=== PATIENT | female | born 2000 | race Two or more races ===

== ENCOUNTER 2024-06-20 20:01 | Inpatient (IN) | payer SELFPAY ==
[2024-06-20 20:45] VITALS: BMI 21.7
[2024-06-20] MEDS: OLANZapine 5 MG TABLET PO (23:36)
[2024-06-20] MEDS: hydrOXYzine HCL 25 MG TABLET PO (23:36)
[2024-06-20] MEDS: traZODone HCL 50 MG TABLET PO (23:37)
--- NOTE | 2024-06-21 01:28 | PC.ADMIT ---
Pt is a 24yo female [place] [facility] [place]erratic [place]. Pt reported acting erratic, yelling I am good , after coming home from work as well as not sleeping. She has been decompensating over the past few days. Danuta resides with friends who are hosting her as she attends school in [place]. She does not have any providers here in [place] and does not have any HX of inpatient psychiatric admissions or any other level of care. Danuta has risk factors that include disorganization, onset of symptoms, lack of outpatient providers as well as sleep disturbances. On unit admission process, Pt was calm and cooperative, denies SI/HI/AV/VH. She however appears disorganized, laughing to self. She appear to be responding to internal stimuli. Pt continues to be disorganized, wondering to other Pt's rooms, and taking their cloths. She was redirected, PO PRNs offered and administered with calm effect as she slept off later. Safety/skin check was unremarkable, v/s and wt done. She signed some release of information forms, menu, and valuable form. Treatment plan and safety tools done but yet to be signed. Hospitalist contacted for consultation. Pt is safe on the unit.
[2024-06-21 07:50] VITALS: BP 126/61; PULSE 113; TEMP 36.8; O2SAT 99
[2024-06-21 08:53] LABS: Estimated Average Glucose 114 mg/dL; Hemoglobin A1C 107.8853 umol/L; Hemoglobin A1c % 5.6 % (<6.0); Total Hemoglobin (HGBA1C) 2871.3264 umol/L
[2024-06-21 09:12] LABS: Alanine Aminotransferase 16 U/L (0-31); Albumin Level 4.5 g/dL (3.5-5.0); Alkaline Phosphatase 55 U/L (39-117); Anion Gap 11 (12-20); Aspartate Amino Transferase 35 U/L (5-31); Bilirubin Total 0.3 mg/dL (0.0-1.0); Blood Urea Nitrogen 12 mg/dL (9-16); Calcium 9.2 mg/dL (8.4-10.2); Carbon Dioxide 24 mmol/L (22-29); Chloride 112 mmol/L (96-108); Cholesterol 123 mg/dL (<200); Creatinine Clr Calc Pharmacy 83.1; Estimated Glomerular Filt Rate > 60; Glucose Random 94 mg/dL (60-115); HDL Cholesterol 66 mg/dL (>40); LDL Cholesterol Calculated 48 mg/dL (<100); Potassium 3.9 mmol/L (3.3-5.1); Sodium 143 mmol/L (135-145); Total Protein 7.2 g/dL (6.5-8.0); Triglycerides 45 mg/dL (<150)
[2024-06-21 09:27] LABS: TSH reflex Free T4 0.82 uIU/mL (0.32-4.0)
--- NOTE | 2024-06-21 09:39 | HO.PSYADMNOT ---
HPI Date of Service: 06/21/24 Chief Complaint: F20.9 Unspecified Schizophrenia Spectruim and Psyc Sources of Information: patient interviewed, chart reviewed and crisis/core team assessment reviewed HPI Subjective Notes: Yepez Warning Narrative: 24 yo female, transfer fro [facility] with erratic behaviors in community, not being able to sleep and considered to be decompensating over the last several days. Mood is described as labile. She is described as disorganized and is intrusive on the unit. Pt is an [employer] student, staying with friends. She lives in [place] [place] [facility] and came to the area in Feb 2024. Past Psychiatric History: IP: Denies OP: Denies Medical Evaluation Reviewed: Yes [facility] Narrative: anemia Family History: Denies Social History: Born in [facility] [place] Currently at [employer] working on her masters degree Substance History: Denies Trauma History: Denies Diagnostics Vital Signs (24Hr): Vital Signs - 24 hr 06/21/24 07:50 Temperature 98.3 F Pulse Rate 113 H Blood Pressure 126/61 Pulse Oximetry 99 Oxygen Delivery Method Room Air BMI result Body Mass Index 21.7 Labs 06/21/24 08:31 Labs: Laboratory Results - last 48 hr 06/21/24 08:31 Sodium 143 Potassium 3.9 Chloride 112 H Carbon Dioxide 24 Anion Gap 11 L BUN 12 Creatinine 0.93 Estim Creat Clear Calc 83.1 Estimated GFR > 60 Random Glucose 94 Estimat Average Glucose 114 Hemoglobin A1c % 5.6 Calcium 9.2 Total Bilirubin 0.3 AST 35 H ALT 16 Alkaline Phosphatase 55 Total Protein 7.2 Albumin 4.5 Triglycerides 45 Cholesterol 123 LDL Cholesterol, Calc 48 HDL Cholesterol 66 TSH 0.82 Meds/Allergies Meds Home Medications ?Medication ?Instructions ?Recorded ?Confirmed ?Type No Known Home Meds 06/20/24 06/20/24 History Allergies Allergies Allergy/AdvReac Type Severity Reaction Status Date / Time No Known Allergies Allergy Verified 06/20/24 20:44 Mental Status Exam Mental Status Exam Patient Appearance: Appropriate Patient Orientation: Person, Place, Time and Situation Level of Consciousness: Alert Patient Behavior: Talkative, Cooperative and Good Eye Contact Mood Description: Withdrawn and Labile Affect Description: Withdrawn and Labile Patient Cognition Impaired: No Ability to Follow Directions: Fair Speech Pattern: Spontaneous Speech Memory Description: Episodic Impaired Hallucinations: None Delusions: Not Present Thought Content: positive for [place], positive for Circumstantial and positive for Suicidal Ideation (denies) Judgement: Fair Assessment & Plan Assessment & Plan (1) Mood disorder: Status: Acute Code(s): F39 - Unspecified mood [affective] disorder Plan Admit Observe sx/behaviors. Zyprexa prn Collateral contact Diagnostics as needed Pt is not interested in medicine at this time. ?Initial manic episode Patient educated on: therapeutic strategies Reason for continued inpatient stay Substantial Risk for: rapid decompensation Statement Statement: I have reviewed the history and physical and performed a pertinent examination on my patient. No changes have occurred unless specified. If the History and Physical was not performed prior to admission, the Hospitalist's service will be consulted for completing the admission physical. Time Spent With Patient Time: Total time managing care of this patient today ____ minutes.
--- NOTE | 2024-06-21 11:40 | P.CONHOSP_ITS ---
History of Present Illness Data of Consult Service Date: 06/21/24 Primary Care Provider: Unknown Physician HPI Reason for consult: Admission H&P Pt is a 24-year-old female without any known PMH who is admitted to psychiatry unit for bizarre behavior. Pt presented to [facility] [place] ED with her father who reported she had been acting abnormally for the past few days, acting hyper, manic, and not sleeping. Workup at [facility] [place] remarkable for anemia of 9.8/31.7, otherwise unremarkable, including negative CT of head. Medical consult for admission H&P. Pt seen and evaluated on the unit where she continues to be manic and overall somewhat difficult to redirect. Pt denies any previous medical hx and is not on home prescription medications. Is unsure when last she saw a primary care physician for a regular yearly physical. Pt denies any acute medical complaints. No fever, chills, nausea, vomiting, abdominal pain. Denies shortness or breath or difficulty breathing. No chest pain/pressure, palpitations. Denies headache acute vision changes. Labs reviewed, chemistries grossly unremarkable. No significant electrolyte abnormalities. Renal function WNL. Hepatic function with mildly elevated AST of 35, otherwise WNL. Lipid profile WNL. Pt mildly tachycardic at 113, vitals otherwise stable and WNL. Review of Systems 2 Review of Systems: Pt has no acute medical complaints at this time. [facility] Social History Household Members: Family Housing: Apartment Do you presently have visiting nurse or other home services: No Patient Tobacco Use Status: Never used Tobacco Smoked in Last 30 Days: No Patient Interested in Nicotine Replacement: No Patient Given Instructions on How to Stop Smoking: No Second Hand Smoke Exposure: No Use of substances other than those prescribed or required for medical reasons: No Currently Displaying Signs/Symptoms of Drug Intoxication Withdrawal: No Any prior treatment program specific to substance use: No Have you been hit, kicked, punched, or otherwise hurt by someone within the past year? If so, by whom?: No Do you feel safe in your current relationship?: No Current Relationship Is there a partner from a previous relationship who is making you feel unsafe now?: No Are you made to feel afraid or neglected: No Advance Directives: No Advance Directives Information Provided: No Do you have a plan to hurt others: No Plan Recently lost weight without trying: Yes How much weight loss: 2-13 pounds Eating poorly because of decreased appetite: Yes Nutrition screen score: 4 Nutrition Risks: No Nutritional Risk Patient : No : No Poor oral hygiene: No Meds Allergies Allergy/AdvReac Type Severity Reaction Status Date / Time No Known Allergies Allergy Verified 06/20/24 20:44 Active Medications: Current Medications Acetaminophen (Acetaminophen 325 Mg Tablet) 650 mg PO Q6H PRN PRN Reason: Headache/Pain, Scale 1-10 Al Hydroxide/Mg Hydroxide (Magnesium Hydrox/Alum Hydrox 30 Ml Oral.Susp) 30 ml PO Q6H PRN PRN Reason: Heartburn/Nausea Hydroxyzine HCl (Hydroxyzine Hcl 25 Mg Tablet) 25 mg PO Q6H PRN PRN Reason: mild anxiety Last Admin: 06/20/24 23:36 Dose: 25 mg Magnesium Hydroxide (Milk Of Magnesia 30 Ml Oral.Susp) 30 ml PO DAILY PRN PRN Reason: Constipation Nicotine (Nicotine 21 Mg Patch.Td24) 21 mg TRANSDERMA DAILY PRN PRN Reason: smoking cessation Olanzapine (Olanzapine 5 Mg Tablet) 5 mg PO TID PRN PRN Reason: agitation Last Admin: 06/20/24 23:36 Dose: 5 mg Trazodone HCl (Trazodone Hcl 50 Mg Tablet) 50 mg PO BEDTIME MRX1 PRN PRN Reason: Insomnia Last Admin: 06/20/24 23:37 Dose: 50 mg Home Medications ?Medication ?Instructions ?Recorded ?Confirmed ?Last Taken ?Type No Known Home Meds 06/20/24 06/20/24 Unknown History Physical Exam 2 Vital Signs and Narrative: Vital Signs: Last Vital Signs Temp 98.3 F 06/21/24 07:50 Pulse 113 H 06/21/24 07:50 BP 126/61 06/21/24 07:50 Pulse Ox 99 06/21/24 07:50 O2 Del Method Room Air 06/21/24 07:50 BMI result Body Mass Index 21.7 General: AOx3, no acute distress Resp: CTA bilaterally CVS: S1, S2, RRR GI: +BS, NT, no distention Skin: Warm, dry Neuro: Cranial nerves II-XII grossly intact bilaterally. Motor grossly intact bilaterally Extremities: No edema Psych: Appear manic, somewhat difficult to redirect Results Labs 06/21/24 08:31 Labs: Laboratory Results - last 24 hr 06/21/24 08:31 Anion Gap 11 L Estim Creat Clear Calc 83.1 Estimated GFR > 60 Random Glucose 94 Estimat Average Glucose 114 Hemoglobin A1c % 5.6 Calcium 9.2 Total Bilirubin 0.3 AST 35 H ALT 16 Alkaline Phosphatase 55 Total Protein 7.2 Albumin 4.5 Triglycerides 45 Cholesterol 123 LDL Cholesterol, Calc 48 HDL Cholesterol 66 TSH 0.82 Assessment and Plan (1) Medical clearance for psychiatric admission: Status: Acute Plan Pt is a 24-year-old female without any known PMH who is admitted to psychiatry unit for bizarre behavior. Pt presented to [facility] [place] ED with her father who reported she had been acting abnormally for the past few days, acting hyper, manic, and not sleeping. Workup at [facility] [place] remarkable for anemia of 9.8/31.7, otherwise unremarkable, including negative CT of head. Medical consult for admission H&P. Mood disorder Plan as per Psychiatry Anemia [facility] [place] labs showed H&H of 9.8/31.7, none others for comparison Pt denies active bleeding, is asymptomatic Needs outpatient follow up Pt otherwise has no acute medical complaints known chronic medical conditions. Will sign off for now. Thank you for allowing us to participate in the care of this pt. Please re-consult if any acute issue or need arises.
[2024-06-21 20:00] VITALS: BP 121/71; PULSE 85; RESP 16; TEMP 36.7; O2SAT 100
[2024-06-21] MEDS: hydrOXYzine HCL 25 MG TABLET PO (20:13)
[2024-06-21] MEDS: traZODone HCL 50 MG TABLET PO (20:14)
[2024-06-21] MEDS: OLANZapine 5 MG TABLET PO (20:14)
[2024-06-22 08:10] VITALS: BP 122/69; PULSE 84; TEMP 36.3; O2SAT 95
--- NOTE | 2024-06-22 08:43 | HO.PSYCHPN ---
Subjective Subjective Date of Service: 06/22/24 Reason For Visit: F20.9 Unspecified Schizophrenia Spectruim and Psyc Interim History: met with patient in her room. Bright, intense, odd affect. Poor insight. Vague disease control inspector. Says she feels good and does not need to be here. Mood is so happy . She says she is here because they thought I was crazy but that was a mistake . She says her family has come for her and they say they want me home . She apparently lives with family in the area. She lists names of people she lives with (Lydia, Duane, Cony, Lenora, Arturo, Wanda, Senthili (?sp)) but I am unable to clarify who these individuals are and how she is related to each of them. She mentions her father is in [place] and wanted her here, but now wants her to come home. In another instance she says the opposite my dad was saying stay, but I should go . 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 She is a student at [employer] and is studying business but keeps mentioning trying to find some kids to teach. She had difficulty focusing on conversation, and thereafter throughout the day she would interrupt this residential mortgage underwriter when I was speaking to other patients in the milieu and would oddly glare and intrude on others' personal conversation and occasionally needed to be asked to leave to afford privacy to other patients. She did not appears to respond poorly to being redirected, but was also unclear what her intention was with the intrusion. She denied any SI/HI/AH/VH but does appear internally preoccupied, but does not appear to b grossly responding to unseen stimuli. Medication Compliance: Yes Side effects from medications: No Attending Groups: Yes Review of Systems Acute medical concerns: No Review of Systems Review of Systems anemia Mental Status Exam Mental Status Exam Patient Appearance: Appropriate Patient Orientation: Person, Place, Time and Situation Level of Consciousness: Alert Patient Behavior: Talkative, Cooperative and Good Eye Contact Mood Description: Withdrawn and Labile Affect Description: Withdrawn and Labile Patient Cognition Impaired: No Ability to Follow Directions: Fair Speech Pattern: Spontaneous Speech Memory Description: Episodic Impaired Diagnostics Vital Signs (24Hr): Vital Signs - 24 hr 06/21/24 20:00 06/22/24 08:10 Temperature 98.1 F 97.4 F Pulse Rate 85 84 Respiratory Rate 16 Blood Pressure 121/71 122/69 Pulse Oximetry 100 95 Oxygen Delivery Method Room Air Room Air BMI result Body Mass Index 21.7 Labs 06/21/24 08:31 Labs: Laboratory Results - last 48 hr 06/21/24 08:31 Sodium 143 Potassium 3.9 Chloride 112 H Carbon Dioxide 24 Anion Gap 11 L BUN 12 Creatinine 0.93 Estim Creat Clear Calc 83.1 Estimated GFR > 60 Random Glucose 94 Estimat Average Glucose 114 Hemoglobin A1c % 5.6 Calcium 9.2 Total Bilirubin 0.3 AST 35 H ALT 16 Alkaline Phosphatase 55 Total Protein 7.2 Albumin 4.5 Triglycerides 45 Cholesterol 123 LDL Cholesterol, Calc 48 HDL Cholesterol 66 TSH 0.82 Medications Medications Current Medications Acetaminophen (Acetaminophen 325 Mg Tablet) 650 mg PO Q6H PRN PRN Reason: Headache/Pain, Scale 1-10 Al Hydroxide/Mg Hydroxide (Magnesium Hydrox/Alum Hydrox 30 Ml Oral.Susp) 30 ml PO Q6H PRN PRN Reason: Heartburn/Nausea Hydroxyzine HCl (Hydroxyzine Hcl 25 Mg Tablet) 25 mg PO Q6H PRN PRN Reason: mild anxiety Last Admin: 06/21/24 20:13 Dose: 25 mg Magnesium Hydroxide (Milk Of Magnesia 30 Ml Oral.Susp) 30 ml PO DAILY PRN PRN Reason: Constipation Nicotine (Nicotine 21 Mg Patch.Td24) 21 mg TRANSDERMA DAILY PRN PRN Reason: smoking cessation Olanzapine (Olanzapine 5 Mg Tablet) 5 mg PO TID PRN PRN Reason: agitation Last Admin: 06/21/24 20:14 Dose: 5 mg Trazodone HCl (Trazodone Hcl 50 Mg Tablet) 50 mg PO BEDTIME MRX1 PRN PRN Reason: Insomnia Last Admin: 06/21/24 20:14 Dose: 50 mg Allergies Allergies Allergy/AdvReac Type Severity Reaction Status Date / Time No Known Allergies Allergy Verified 06/20/24 20:44 Assessment & Plan Assessment & Plan (1) Medical clearance for psychiatric admission: Status: Acute Code(s): Z00.8 - Encounter for other general examination Plan Pt is a 24-year-old female without any known PMH who is admitted to psychiatry unit for bizarre behavior. Pt presented to [facility] [place] with her father who reported she had been acting abnormally for the past few days, acting hyper, manic, and not sleeping. Workup at [facility] remarkable for anemia of 9.8/31.7, otherwise unremarkable, including negative CT of head. Medical consult for admission H&P. Mood disorder Plan as per Psychiatry Anemia [facility] labs showed H&H of 9.8/31.7, none others for comparison Pt denies active bleeding, is asymptomatic Needs outpatient follow up Pt otherwise has no acute medical complaints known chronic medical conditions. Will sign off for now. Thank you for allowing us to participate in the care of this pt. Please re-consult if any acute issue or need arises. 06/22/24: continue trtmt Reason for continued inpatient stay Substantial Risk for: med/psych decompensation Time Spent With Patient Time: Total time managing care of this patient today ____ minutes.
[2024-06-22 19:55] VITALS: BP 116/76; PULSE 79; RESP 15; TEMP 36.7; O2SAT 100
[2024-06-23 08:00] VITALS: BP 118/63; PULSE 71; RESP 18; TEMP 36.6; O2SAT 100
--- NOTE | 2024-06-23 12:03 | P.PNPSI_ITS ---
Subjective Subjective Date of Service: 06/23/24 Reason For Visit: F20.9 Unspecified Schizophrenia Spectruim and Psyc Subjective Notes: Conditional Voluntary Healthcare Proxy: No Guardianship: No Medical Problems Affecting Mental Status: No Interim History: Pt spoke of her home, family, history and travel to [facility]. She reports she feels safe on the unit. She is not currently interested in any medications for mood, reports sleep and appetite are intact, denies SI,HI and does not appear to be responding to any internal stimuli at this time. She did have a visitor today and team is attempting to gather contact information for collateral perspectives. Medication Compliance: No Side effects from medications: No Attending Groups: Intermittent Review of Systems Acute medical concerns: No Medical Review of Systems: unchanged Review of Systems Review of Systems Denies Mental Status Exam Mental Status Exam Patient Appearance: Appropriate Patient Orientation: Person, Place, Time and Situation Level of Consciousness: Alert Patient Behavior: Talkative, Cooperative and Good Eye Contact Mood Description: Withdrawn and Labile Affect Description: Withdrawn and Labile Patient Cognition Impaired: No Ability to Follow Directions: Fair Speech Pattern: Spontaneous Speech Memory Description: Episodic Impaired Diagnostics Vital Signs (24Hr): Vital Signs - 24 hr 06/22/24 19:55 06/23/24 08:00 Temperature 98.1 F 97.9 F Pulse Rate 79 71 Respiratory Rate 15 18 Blood Pressure 116/76 118/63 Pulse Oximetry 100 100 Oxygen Delivery Method Room Air BMI result Body Mass Index 21.7 Labs 06/21/24 08:31 Medications Medications Current Medications Acetaminophen (Acetaminophen 325 Mg Tablet) 650 mg PO Q6H PRN PRN Reason: Headache/Pain, Scale 1-10 Al Hydroxide/Mg Hydroxide (Magnesium Hydrox/Alum Hydrox 30 Ml Oral.Susp) 30 ml PO Q6H PRN PRN Reason: Heartburn/Nausea Hydroxyzine HCl (Hydroxyzine Hcl 25 Mg Tablet) 25 mg PO Q6H PRN PRN Reason: mild anxiety Last Admin: 06/21/24 20:13 Dose: 25 mg Magnesium Hydroxide (Milk Of Magnesia 30 Ml Oral.Susp) 30 ml PO DAILY PRN PRN Reason: Constipation Nicotine (Nicotine 21 Mg Patch.Td24) 21 mg TRANSDERMA DAILY PRN PRN Reason: smoking cessation Olanzapine (Olanzapine 5 Mg Tablet) 5 mg PO TID PRN PRN Reason: agitation Last Admin: 06/21/24 20:14 Dose: 5 mg Trazodone HCl (Trazodone Hcl 50 Mg Tablet) 50 mg PO BEDTIME MRX1 PRN PRN Reason: Insomnia Last Admin: 06/21/24 20:14 Dose: 50 mg Allergies Allergies Allergy/AdvReac Type Severity Reaction Status Date / Time No Known Allergies Allergy Verified 06/20/24 20:44 Assessment & Plan Assessment & Plan (1) Medical clearance for psychiatric admission: Status: Acute Code(s): Z00.8 - Encounter for other general examination Plan Pt is a 24-year-old female without any known PMH who is admitted to psychiatry unit for bizarre behavior. Pt presented to [facility] ED with her father who reported she had been acting abnormally for the past few days, acting hyper, manic, and not sleeping. Workup at [facility] remarkable for anemia of 9.8/31.7, otherwise unremarkable, including negative CT of head. Medical consult for admission H&P. Mood disorder Plan as per Psychiatry Anemia [facility] labs showed H&H of 9.8/31.7, none others for comparison Pt denies active bleeding, is asymptomatic Needs outpatient follow up Pt otherwise has no acute medical complaints known chronic medical conditions. Will sign off for now. Thank you for allowing us to participate in the care of this pt. Please re-consult if any acute issue or need arises. 06/22/24: continue trtmt 06/23/24: gather collateral information Reason for continued inpatient stay Substantial Risk for: rapid decompensation Time Spent With Patient Time: Total time managing care of this patient today ____ minutes.
[2024-06-23 20:00] VITALS: BP 110/62; PULSE 72; RESP 16; TEMP 36.5; O2SAT 99
[2024-06-24 08:01] VITALS: BP 112/60; PULSE 75; TEMP 36.6; O2SAT 100
--- NOTE | 2024-06-24 16:20 | P.PNPSI_ITS ---
Subjective Subjective Date of Service: 06/24/24 Reason For Visit: F20.9 Unspecified Schizophrenia Spectruim and Psyc Subjective Notes: Conditional Voluntary and 3 Day Healthcare Proxy: No Guardianship: No Medical Problems Affecting Mental Status: No Interim History: Pt continues to decline medication. No sx of behavioral dyscontrol, akila, psychosis. Wanting to discharge. Team is talking with her sierra at [facility] to assess requirements as she wants to return to her classes. Message left for her host family, Duane [phone]. Medication Compliance: Intermittent Side effects from medications: No Attending Groups: Intermittent Review of Systems Acute medical concerns: No Review of Systems Review of Systems Denies Mental Status Exam Mental Status Exam Patient Appearance: Appropriate Patient Orientation: Person, Place, Time and Situation Level of Consciousness: Alert Patient Behavior: Talkative, Cooperative and Good Eye Contact Mood Description: Calm Affect Description: Calm Patient Cognition Impaired: No Ability to Follow Directions: Good Speech Pattern: Spontaneous Speech Memory Description: Episodic Impaired Hallucinations: None Thought Content: positive for [place], positive for Circumstantial and positive for Suicidal Ideation (denies) Depressive Symptoms: Thoughts of /Suicide (denies) Judgement: Fair Diagnostics Vital Signs (24Hr): Vital Signs - 24 hr 06/23/24 20:00 06/24/24 08:01 Temperature 97.7 F 97.8 F Pulse Rate 72 75 Respiratory Rate 16 Blood Pressure 110/62 112/60 Pulse Oximetry 99 100 Oxygen Delivery Method Room Air Room Air BMI result Body Mass Index 21.7 Labs 06/21/24 08:31 Medications Medications Current Medications Acetaminophen (Acetaminophen 325 Mg Tablet) 650 mg PO Q6H PRN PRN Reason: Headache/Pain, Scale 1-10 Al Hydroxide/Mg Hydroxide (Magnesium Hydrox/Alum Hydrox 30 Ml Oral.Susp) 30 ml PO Q6H PRN PRN Reason: Heartburn/Nausea Hydroxyzine HCl (Hydroxyzine Hcl 25 Mg Tablet) 25 mg PO Q6H PRN PRN Reason: mild anxiety Last Admin: 06/21/24 20:13 Dose: 25 mg Magnesium Hydroxide (Milk Of Magnesia 30 Ml Oral.Susp) 30 ml PO DAILY PRN PRN Reason: Constipation Nicotine (Nicotine 21 Mg Patch.Td24) 21 mg TRANSDERMA DAILY PRN PRN Reason: smoking cessation Olanzapine (Olanzapine 5 Mg Tablet) 5 mg PO TID PRN PRN Reason: agitation Last Admin: 06/21/24 20:14 Dose: 5 mg Trazodone HCl (Trazodone Hcl 50 Mg Tablet) 50 mg PO BEDTIME MRX1 PRN PRN Reason: Insomnia Last Admin: 06/21/24 20:14 Dose: 50 mg Allergies Allergies Allergy/AdvReac Type Severity Reaction Status Date / Time No Known Allergies Allergy Verified 06/20/24 20:44 Assessment & Plan Assessment & Plan (1) Medical clearance for psychiatric admission: Status: Acute Code(s): Z00.8 - Encounter for other general examination Plan Pt is a 24-year-old female without any known PMH who is admitted to psychiatry unit for bizarre behavior. Pt presented to [facility] [place] ED with her father who reported she had been acting abnormally for the past few days, acting hyper, manic, and not sleeping. Workup at [facility] [place] remarkable for anemia of 9.8/31.7, otherwise unremarkable, including negative CT of head. Medical consult for admission H&P. Mood disorder Plan as per Psychiatry Anemia [facility] [place] labs showed H&H of 9.8/31.7, none others for comparison Pt denies active bleeding, is asymptomatic Needs outpatient follow up Pt otherwise has no acute medical complaints known chronic medical conditions. Will sign off for now. Thank you for allowing us to participate in the care of this pt. Please re-consult if any acute issue or need arises. 06/22/24: continue trtmt 06/24/24: Encourage treatment compliance. TDN 06/27. Reason for continued inpatient stay Substantial Risk for: rapid decompensation Time Spent With Patient Time: Total time managing care of this patient today ____ minutes.
[2024-06-24] MEDS: OLANZapine 5 MG TABLET PO (20:36)
[2024-06-24] MEDS: hydrOXYzine HCL 25 MG TABLET PO (20:36)
[2024-06-24] MEDS: traZODone HCL 50 MG TABLET PO (20:36)
[2024-06-25 08:00] VITALS: BP 94/48; PULSE 75; TEMP 36.9; O2SAT 100
--- NOTE | 2024-06-25 09:34 | P.PNPSI_ITS ---
Subjective Subjective Date of Service: 06/25/24 Reason For Visit: F20.9 Unspecified Schizophrenia Spectruim and Psyc Subjective Notes: Conditional Voluntary and 3 Day Healthcare Proxy: No Guardianship: No Medical Problems Affecting Mental Status: No Interim History: Denies SI,HI,AH,VH. Sleeping and eating adequately. No sx of behavioral dyscontrol. Asks for DC Care discussed with pt's host family, Duane. They are visiting daily and do not see her at baseline. Discussed TDN and pt's legal rights. Duane asks about commitment criteria and that we send her home with a prescription and they will encourage medicine compliance. This was discussed with pt and she agrees. Medication Compliance: No Side effects from medications: No Attending Groups: Intermittent Review of Systems Acute medical concerns: No Review of Systems Review of Systems Denies Mental Status Exam Mental Status Exam Patient Appearance: Appropriate Patient Orientation: Person, Place, Time and Situation Level of Consciousness: Alert Patient Behavior: Talkative, Cooperative and Good Eye Contact Mood Description: Calm Affect Description: Calm Patient Cognition Impaired: No Ability to Follow Directions: Good Speech Pattern: Spontaneous Speech Memory Description: Episodic Impaired Hallucinations: None Thought Content: positive for [place], positive for Circumstantial and positive for Suicidal Ideation (denies) Depressive Symptoms: Thoughts of /Suicide (denies) Judgement: Fair Diagnostics Vital Signs (24Hr): Vital Signs - 24 hr 06/25/24 08:00 Temperature 98.5 F Pulse Rate 75 Blood Pressure 94/48 L Pulse Oximetry 100 Oxygen Delivery Method Room Air BMI result Body Mass Index 21.7 Labs 06/21/24 08:31 Medications Medications Current Medications Acetaminophen (Acetaminophen 325 Mg Tablet) 650 mg PO Q6H PRN PRN Reason: Headache/Pain, Scale 1-10 Al Hydroxide/Mg Hydroxide (Magnesium Hydrox/Alum Hydrox 30 Ml Oral.Susp) 30 ml PO Q6H PRN PRN Reason: Heartburn/Nausea Hydroxyzine HCl (Hydroxyzine Hcl 25 Mg Tablet) 25 mg PO Q6H PRN PRN Reason: mild anxiety Last Admin: 06/24/24 20:36 Dose: 25 mg Magnesium Hydroxide (Milk Of Magnesia 30 Ml Oral.Susp) 30 ml PO DAILY PRN PRN Reason: Constipation Nicotine (Nicotine 21 Mg Patch.Td24) 21 mg TRANSDERMA DAILY PRN PRN Reason: smoking cessation Olanzapine (Olanzapine 5 Mg Tablet) 5 mg PO TID PRN PRN Reason: agitation Last Admin: 06/24/24 20:36 Dose: 5 mg Trazodone HCl (Trazodone Hcl 50 Mg Tablet) 50 mg PO BEDTIME MRX1 PRN PRN Reason: Insomnia Last Admin: 06/24/24 20:36 Dose: 50 mg Allergies Allergies Allergy/AdvReac Type Severity Reaction Status Date / Time No Known Allergies Allergy Verified 06/20/24 20:44 Assessment & Plan Assessment & Plan (1) Medical clearance for psychiatric admission: Status: Acute Code(s): Z00.8 - Encounter for other general examination Plan Pt is a 24-year-old female without any known PMH who is admitted to psychiatry unit for bizarre behavior. Pt presented to [facility] ED with her father who reported she had been acting abnormally for the past few days, acting hyper, manic, and not sleeping. Workup at [facility] remarkable for anemia of 9.8/31.7, otherwise unremarkable, including negative CT of head. Medical consult for admission H&P. Mood disorder Plan as per Psychiatry Anemia [facility] labs showed H&H of 9.8/31.7, none others for comparison Pt denies active bleeding, is asymptomatic Needs outpatient follow up Pt otherwise has no acute medical complaints known chronic medical conditions. Will sign off for now. Thank you for allowing us to participate in the care of this pt. Please re-consult if any acute issue or need arises. 06/22/24: continue trtmt 06/23/24: gather collateral information 06/25/24: continue to offer treatment/ TDN expires 06/27. Reason for continued inpatient stay Substantial Risk for: rapid decompensation Time Spent With Patient Time: Total time managing care of this patient today ____ minutes.
[2024-06-25 19:34] VITALS: BP 111/59; PULSE 94; TEMP 37.2; O2SAT 99
[2024-06-25] MEDS: OLANZapine 5 MG TABLET PO (20:25)
[2024-06-25] MEDS: traZODone HCL 50 MG TABLET PO (20:25)
[2024-06-25] MEDS: hydrOXYzine HCL 25 MG TABLET PO (20:26)
[2024-06-26 07:00] VITALS: BMI 21.8
[2024-06-26 08:17] VITALS: BP 99/54; PULSE 61; RESP 16; TEMP 36.8; O2SAT 99
[2024-06-26 09:41] VITALS: BP 120/58; PULSE 95
--- NOTE | 2024-06-26 09:51 | P.PNPSI_ITS ---
Subjective Subjective Date of Service: 06/26/24 Reason For Visit: F20.9 Unspecified Schizophrenia Spectruim and Psyc Interim History: Pt will discharge 06/27. She continues to decline treatment. Family asks that we send medication and they will encourage her compliance. Pt agrees with this plan that family has requested No SI,HI,AH,VH. No sx of acute akila or psychosis. Medication Compliance: Intermittent Side effects from medications: No Attending Groups: Intermittent Review of Systems Acute medical concerns: No Review of Systems Review of Systems Denies Mental Status Exam Mental Status Exam Patient Appearance: Appropriate Patient Orientation: Person, Place, Time and Situation Level of Consciousness: Alert Patient Behavior: Talkative, Cooperative and Good Eye Contact Mood Description: Calm Affect Description: Calm Patient Cognition Impaired: No Ability to Follow Directions: Good Speech Pattern: Spontaneous Speech Memory Description: Episodic Impaired Hallucinations: None Delusions: Not Present Thought Process: Intact and Distracted Thought Content: positive for [place], positive for Circumstantial and positive for Suicidal Ideation (denies) Depressive Symptoms: Thoughts of /Suicide (denies) Judgement: Fair Diagnostics Vital Signs (24Hr): Vital Signs - 24 hr 06/25/24 19:34 06/26/24 08:17 06/26/24 09:41 Temperature 98.9 F 98.2 F Pulse Rate 94 61 95 Respiratory Rate 16 Blood Pressure 111/59 L 99/54 L 120/58 L Pulse Oximetry 99 99 Oxygen Delivery Method Room Air Room Air BMI result Body Mass Index 21.7 Labs 06/21/24 08:31 Medications Medications Current Medications Acetaminophen (Acetaminophen 325 Mg Tablet) 650 mg PO Q6H PRN PRN Reason: Headache/Pain, Scale 1-10 Al Hydroxide/Mg Hydroxide (Magnesium Hydrox/Alum Hydrox 30 Ml Oral.Susp) 30 ml PO Q6H PRN PRN Reason: Heartburn/Nausea Hydroxyzine HCl (Hydroxyzine Hcl 25 Mg Tablet) 25 mg PO Q6H PRN PRN Reason: mild anxiety Last Admin: 06/25/24 20:26 Dose: 25 mg Magnesium Hydroxide (Milk Of Magnesia 30 Ml Oral.Susp) 30 ml PO DAILY PRN PRN Reason: Constipation Nicotine (Nicotine 21 Mg Patch.Td24) 21 mg TRANSDERMA DAILY PRN PRN Reason: smoking cessation Olanzapine (Olanzapine 5 Mg Tablet) 5 mg PO TID PRN PRN Reason: agitation Last Admin: 06/25/24 20:25 Dose: 5 mg Trazodone HCl (Trazodone Hcl 50 Mg Tablet) 50 mg PO BEDTIME MRX1 PRN PRN Reason: Insomnia Last Admin: 06/25/24 20:25 Dose: 50 mg Allergies Allergies Allergy/AdvReac Type Severity Reaction Status Date / Time No Known Allergies Allergy Verified 06/20/24 20:44 Assessment & Plan Assessment & Plan (1) Medical clearance for psychiatric admission: Status: Acute Code(s): Z00.8 - Encounter for other general examination Plan Pt is a 24-year-old female without any known PMH who is admitted to psychiatry unit for bizarre behavior. Pt [place] [facility] [place] with [place] father who reported she had been acting abnormally for the past few days, acting hyper, manic, and not sleeping. [place] [facility] [place] for anemia of 9.8/31.7, otherwise unremarkable, including negative CT of head. Medical consult for admission H&P. Mood disorder Plan as per Psychiatry Anemia [facility] [place] showed H&H of 9.8/31.7, none others for comparison Pt denies active bleeding, is asymptomatic Needs outpatient follow up Pt otherwise has no acute medical complaints known chronic medical conditions. Will sign off for now. Thank you for allowing us to participate in the care of this pt. Please re-consult if any acute issue or need arises. 06/22/24: continue trtmt 06/23/24: gather collateral information 06/25/24: continue to offer treatment/ TDN expires 06/27. 06/26/24: DC 06/27. Pt has agreed to accept medication when at home with family Reason for continued inpatient stay Substantial Risk for: stable for discharge Time Spent With Patient Time: Total time managing care of this patient today ____ minutes.
[2024-06-26 20:00] VITALS: BP 111/59; PULSE 80; RESP 16; TEMP 36.4; O2SAT 100
[2024-06-26] MEDS: OLANZapine 5 MG TABLET PO (21:44)
[2024-06-26] MEDS: traZODone HCL 50 MG TABLET PO (21:44)
[2024-06-26] MEDS: hydrOXYzine HCL 25 MG TABLET PO (21:44)
[2024-06-27 08:00] VITALS: BP 93/63; PULSE 62; RESP 16; TEMP 36.8; O2SAT 98
--- NOTE | 2024-06-27 10:05 | P.DS_ITS ---
DS: Providers Provider Date of admission: 06/20/24 20:01 Primary care physician: Unknown Physician Consults: 06/20/24 21:11 Consult to Hospitalist Routine Comment: Consulting Provider: [facility] Reason For Exam: admission physical DS: Diagnosis Discharge Diagnosis (1) Medical clearance for psychiatric admission: Status: Acute DS: Medications Discharge Medications Home Medications: Previous Rx's ?Medication ?Instructions ?Recorded olanzapine 5 mg tablet (Zyprexa) 5 mg PO BID #60 tabs 06/26/24 trazodone 50 mg tablet 50 mg PO BEDTIME MRX1 PRN Insomnia 06/26/24 #30 tabs Data Data Completed and Pending Completed studies during hospitalization [Text1]: 06/21/24 08:31 Sodium 143 Potassium 3.9 Chloride 112 H Carbon Dioxide 24 Anion Gap 11 L BUN 12 Creatinine 0.93 Estim Creat Clear Calc 83.1 Estimated GFR > 60 Random Glucose 94 Estimat Average Glucose 114 Hemoglobin A1c % 5.6 Calcium 9.2 Total Bilirubin 0.3 AST 35 H ALT 16 Alkaline Phosphatase 55 Total Protein 7.2 Albumin 4.5 Triglycerides 45 Cholesterol 123 LDL Cholesterol, Calc 48 HDL Cholesterol 66 TSH 0.82 DS: Summary Time Spent with Patient Time attestation: Total time managing care of this patient today ____ minutes. Discharge Plan Discharge Anticipated Discharge Date/Time: 06/27/24 12:00 Patient Disposition: Home, Self-Care Discharge Diagnosis: Mood disorder Referrals: [facility]: [employer] [Other] - 1 Week (Patient can seek support through [facility]. Patient will need to present counseling Center with health insurance and immunization forms to utilize their services.) [facility] [Other] - 1 Week (Patient may self present for diagnostic evaluation to be connected with outpatient mental health services (therapy and psychiatry) Hours for evaluation Sunday- Sunday 10am-12 pm Telephone number is also able to connect you with crisis services) [facility] [Other] - 1 Week (Patient may self present for evaluation to be connected to outpatient therapy and psychiatry services Hours of evaluation are Sunday-Sunday 8 am- 8 pm and Sunday 9 am- 5 pm.) [facility] [Other] - 1 Week (Crisis services telephone number) Physician,Unknown J [Primary Care Provider] - 1 Week Discharge Medications: New trazodone 50 mg Tablet 50 mg PO BEDTIME MRX1 PRN (Reason: Insomnia) Qty: 30 0RF olanzapine [Zyprexa] 5 mg tablet 5 mg PO BID Qty: 60 0RF Discharge Orders: Discharge Order (Routine); Ordered 06/27/24 Ordered By: Vanessa Lin Diet: Advance to usual diet Activity on Discharge: As tolerated Stand Alone Forms: Patient Portal Discharge page Print Language: Kazakh Care Plan Goals: Mood and Behavioral Stabilization Health Concerns: Mood and Behavioral Stabilization Plan of Treatment: Attend scheduled appointments Take medications as directed Assessment: Denies SI,HI,AH,VH No sx of acute akila or psychosis Pt refuses treatment. Family asks that we send medication and they will encourage her compliance Pt will call/return as needed. This was also discussed with her family.
== END 2024-06-27 12:32 | disposition home or self-care (01) | DRG 885 ==
PROVIDERS: Admitting Provider Psychiatry & Neurology Psychiatry; Visit Provider Clinical Nurse Specialist Psychiatric/Mental Health, Adult
DX: F39 Unspecified mood [affective] disorder (principal); D64.9 Anemia, unspecified
CPT/HCPCS: 36415; 80053; 80061; 83036; 84443

== ENCOUNTER → 2024-06-20 20:01 | Outpatient (BNV) | payer SELFPAY | PROVIDERS: Admitting Provider Psychiatry & Neurology Psychiatry; Visit Provider Student in an Organized Health Care Education/Training Program | DX: D64.9 Anemia, unspecified (principal) | CPT/HCPCS: 99222 ==

== ENCOUNTER → 2024-06-20 20:01 | Outpatient (BNV) | payer SELFPAY | PROVIDERS: Admitting Provider Psychiatry & Neurology Psychiatry; Visit Provider Clinical Nurse Specialist Psychiatric/Mental Health, Adult | DX: F39 Unspecified mood [affective] disorder (principal) | CPT/HCPCS: 90792; 99231; 99232 ==